=== PATIENT | female | born 1995 | race Two or more races ===

== ENCOUNTER 2019-02-13 09:24 | Outpatient (CLI) | payer OTHER | END 2019-02-13 10:46 | disposition home or self-care (01) | LOC: LAB 09:24 | DX: J11.1 Influenza due to unidentified influenza virus with other respiratory manifestations (principal) ==

== ENCOUNTER 2019-03-23 17:13 | Outpatient (CLI) | payer OTHER | END 2019-03-23 18:41 | disposition home or self-care (01) | LOC: RAD 17:13 → LAB 17:13 | DX: R05 Cough (principal) ==